=== PATIENT | male | born 1960 | race Caucasian/White ===

== ENCOUNTER 2019-08-06 16:12 | Inpatient (IN) | payer SELFPAY ==
[~2019-08-06] VITALS: Ht 182.9 cm; Wt 65.8 kg
[2019-08-06] MEDS ORDERED: KEPPRA XR750 MG PO (16:29)
[2019-08-06 18:24] LABS: BASOPHILS ABSOLUTE AUTO 0.08 K/mm3 (0.00-0.23); BASOPHILS PERCENT AUTO 1 % (0-2); EOSINOPHILS ABSOLUTE AUTO 0.18 K/mm3 (0.00-0.68); EOSINOPHILS PERCENT AUTO 1 % (0-6); Hematocrit 42.2 % (37.0-53.0); Hemoglobin 13.9 g/dL (13.5-17.5); IMMATURE GRAN ABSOLUTE AUTO 0.05 K/mm3 (0.00-0.10); IMMATURE GRAN PERCENT AUTO 0 % (0-1); LYMPHOCYTES ABSOLUTE AUTO 3.35 K/mm3 (0.84-5.20); LYMPHOCYTES PERCENT AUTO 24 % (21-46); MONOCYTES ABSOLUTE AUTO 1.06 K/mm3 (0.16-1.47); MONOCYTES PERCENT AUTO 8 % (4-13); Mean Corpuscular HGB 28.9 pg (26.0-34.0); Mean Corpuscular HGB Conc 32.9 g/dL (31.5-36.5); Mean Corpuscular Volume 88 fL (80-100); Mean Platelet Volume 12.6 fL (9.1-12.4); NEUTROPHILS ABSOLUTE AUTO 9.03 K/mm3 (1.96-9.15); NEUTROPHILS PERCENT AUTO 66 % (41-73); Platelet Count 232 K/mm3 (150-400); RDW Standard Deviation 44.9 fL (35.1-46.3); Red Blood Cell Count 4.81 M/mm3 (4.30-5.90); White Blood Cell Count 13.75 K/mm3 (4.00-11.30)
[2019-08-06 18:33] LABS: Ethanol (Alcohol), Blood, Med <3 mg/dL; International Normalized Ratio 0.98; Magnesium, Blood 2.2 mg/dL (1.6-2.4); Prothrombin Time Results 10.5 Sec (9.7-11.5); Salicylate 3.2 mg/dL (2.8-20.0)
[2019-08-06 18:34] LABS: Alanine Aminotransfer (ALT/SGP 22 U/L (12-78); Albumin, Blood 3.9 g/dL (3.4-5.0); Albumin/Globulin Ratio 1.1 (0.8-1.8); Alk Phos 85 U/L (50-136); Anion Gap 11 mmol/L (6-16); Aspartate Aminotrans (AST/SGOT 15 U/L (12-37); Bilirubin, Total 0.3 mg/dL (0.1-1.0); Blood Urea Nitrogen 17 mg/dL (8-24); Bun/Creatinine Ratio 20.9 (12.0-20.0); CO2, Blood 20 mmol/L (21-32); Chloride, Blood 106 mmol/L (98-108); Creatinine, Blood 0.81 mg/dL (0.60-1.20); Globulin, Blood 3.7 g/dL (2.2-4.0); Glomerular Filtration Rate >60 (60-); Glucose, Blood 151 mg/dL (70-99); Potassium, Blood 3.6 mmol/L (3.5-5.5); Sodium, Blood 137 mmol/L (136-145); Total Protein, Blood 7.6 g/dL (6.4-8.2)
[2019-08-06 18:47] LABS: Acetaminophen, Random <2.0 ug/mL (10.0-30.0)
[2019-08-07 06:06] LABS: BASOPHILS ABSOLUTE AUTO 0.04 K/mm3 (0.00-0.23); BASOPHILS PERCENT AUTO 0 % (0-2); EOSINOPHILS PERCENT AUTO 1 % (0-6); Hematocrit 39.9 % (37.0-53.0); Hemoglobin 13.1 g/dL (13.5-17.5); IMMATURE GRAN ABSOLUTE AUTO 0.04 K/mm3 (0.00-0.10); IMMATURE GRAN PERCENT AUTO 0 % (0-1); LYMPHOCYTES ABSOLUTE AUTO 1.63 K/mm3 (0.84-5.20); LYMPHOCYTES PERCENT AUTO 13 % (21-46); MONOCYTES ABSOLUTE AUTO 0.98 K/mm3 (0.16-1.47); MONOCYTES PERCENT AUTO 8 % (4-13); Mean Corpuscular HGB 28.4 pg (26.0-34.0); Mean Corpuscular HGB Conc 32.8 g/dL (31.5-36.5); Mean Corpuscular Volume 86 fL (80-100); Mean Platelet Volume 11.7 fL (9.1-12.4); NEUTROPHILS ABSOLUTE AUTO 9.44 K/mm3 (1.96-9.15); NEUTROPHILS PERCENT AUTO 77 % (41-73); Platelet Count 183 K/mm3 (150-400); RDW Coefficient Variation 13.9 % (11.7-14.2); RDW Standard Deviation 43.7 fL (35.1-46.3); Red Blood Cell Count 4.62 M/mm3 (4.30-5.90); White Blood Cell Count 12.23 K/mm3 (4.00-11.30)
[2019-08-07 06:17] LABS: U Amphetamine Screen Not Detected; U Barbituate Screen Not Detected; U Benzodiazapine Screen Not Detected; U Buprenorphine Screen Not Detected; U Cannabinoids Screen DETECTED; U Cocaine Screen Not Detected; U Methadone Screen Not Detected; U Methamphetamine Screen Not Detected; U Opiates Screen Not Detected; U Oxycodone Screen Not Detected; U Phencyclidine Screen Not Detected; U Propoxyphene Screen Not Detected
[2019-08-07 06:21] LABS: Anion Gap 4 mmol/L (6-16); Blood Urea Nitrogen 12 mg/dL (8-24); Bun/Creatinine Ratio 17.5 (12.0-20.0); CO2, Blood 24 mmol/L (21-32); Calcium, Blood 8.3 mg/dL (8.5-10.1); Chloride, Blood 112 mmol/L (98-108); Creatinine, Blood 0.69 mg/dL (0.60-1.20); Glomerular Filtration Rate >60 (60-); Glucose, Blood 96 mg/dL (70-99); Potassium, Blood 3.9 mmol/L (3.5-5.5); Sodium, Blood 140 mmol/L (136-145)
--- NOTE | 2019-08-07 13:58 | NUR ---
Echocardiogram using 18.0ml of agitated saline contrast performed.
--- NOTE | 2019-08-07 22:11 | NUR ---
1910 Report received from Nelsy; happy and cooperative; denies pain on nausea.
--- NOTE | 2019-08-08 04:31 | NUR ---
SHIFT SUMMARY: 58 Y/O FEMALE RESTED COMFORTABLY IN BED ALL SHIFT WITH NO SEIZURES NOTED OR VOICED; DENIES PAIN OR NAUSEA; BED LOW POSITION WITH CALL LIGHT AT SIDE.
[2019-08-08 05:20] LABS: CHOL/HDL RATIO 4.4; Cholesterol 189 mg/dL (50-200); HDL Cholesterol 43 mg/dL (>39); Low Density Lipoprotein Chol 127 mg/dL (0-110); Triglycerides 93 mg/dL (30-160); Very Low Density Lipoprot Chol 18 mg/dL (6-32)
[2019-08-08] MEDS ORDERED: ASPI81CH PO (15:23)
[2019-08-08] MEDS ORDERED: ATOR40TA PO (16:03)
--- NOTE | 2019-08-08 17:00 | NUR ---
PATIENT D/C'D TO HOME WITH SPOUSE. RX MEDICATIONS FAXED TO [facility]. DC INSTRUCTIONS AND EDUCATION DICUSSED WITH PATIENT AND COPY PROVIDED. PATIENT DENIES ANY FURTHER QUESTIONS OR CONCERNS. NEW PATIENT PACK[facility] HE DOES NOT HAVE A PCP. PATIENT PLANS ON GOING TO URGENT CARE FOR A 1 WEEK FOLLOW UP VISIT.
== END 2019-08-08 17:11 | disposition home or self-care (01) | DRG 100 ==
LOC: ER 16:12 → ERHOLD 16:13 → MEDS 08-07 12:19
PROVIDERS: Emergency Medicine; Internal Medicine; Nurse Practitioner Acute Care; ADMIT Internal Medicine
DX: G40.409 Other generalized epilepsy and epileptic syndromes, not intractable, without status epilepticus (principal); I63.81 Other cerebral infarction due to occlusion or stenosis of small artery; Q28.3 Other malformations of cerebral vessels; F17.210 Nicotine dependence, cigarettes, uncomplicated; Z79.82 Long term (current) use of aspirin
CPT/HCPCS: 36415; 70450; 70553; 80048; 80053; 80061; 83735; 84443; 85025; 85610; 85730; 90686; 93005; 93010; 93306; 93880; 96361; 96365; 96366; 96375; 97161; 99285-25; A9270-GY; A9577; G0480; J1953; J2405; J3480; J7030

== ENCOUNTER 2020-07-11 07:20 | Emergency (ER) | payer SELFPAY ==
[~2020-07-11] VITALS: Ht 182.9 cm; Wt 70.3 kg
[~2020-07-11 07:20] MED LIST: ASPI81CH PO; ATOR40TA PO; KEPPRA XR750 MG PO
[2020-07-11 07:45] LABS: Calcium, Ionized (POC) 1.05 mmol/L (1.10-1.46); Chloride (POC) 105 mmol/L (98-108); Creatinine (POC) 1.1 mg/dL (0.8-1.3); Glucose (ISTAT POC) 169 mg/dL (70-99); Hemoglobin (POC) 15.3 g/dL (13.5-17.5); Potassium (POC) 4.4 mmol/L (3.5-5.5); Sodium (POC) 136 mmol/L (135-148); Total CO2 (POC) 21 mmol/L (21-32)
== END 2020-07-11 09:18 | disposition home or self-care (01) ==
LOC: ER 07:20
PROVIDERS: Emergency Medicine
DX: G40.909 Epilepsy, unspecified, not intractable, without status epilepticus (principal); F17.210 Nicotine dependence, cigarettes, uncomplicated; Z79.899 Other long term (current) drug therapy
CPT/HCPCS: 80047; 85014; 93005; 93010; 99285-25

== ENCOUNTER 2022-09-12 08:45 | Emergency (ER) | payer OTHER ==
[~2022-09-12] VITALS: Ht 182.9 cm; Wt 54.4 kg
[2022-09-12] MEDS ORDERED: PRAMOXINE HCL TOP (10:19)
== END 2022-09-12 10:47 | disposition home or self-care (01) ==
LOC: ER 08:45
DX: A63.0 Anogenital (venereal) warts (principal); G40.909 Epilepsy, unspecified, not intractable, without status epilepticus; F17.210 Nicotine dependence, cigarettes, uncomplicated; Z79.899 Other long term (current) drug therapy; Z79.82 Long term (current) use of aspirin